=== PATIENT | female | born 1955 | race Caucasian/White ===

== ENCOUNTER 2016-08-09 16:01 | Emergency (ER) | payer OTHER ==
[~2016-08-09] VITALS: Ht 172.7 cm; Wt 88.7 kg
[~2016-08-09 16:01] MED LIST: Aspirin PO; CALCIUM + D3 E1 EACH PO; CELECOXIB200 MG PO; DAILY VITE1 EAC1 PO; DEXILANT60 MG PO; DIAZEPAM2 MG PO; DOCUSATE SODIU100 MG PO; ENDOCET 5-3251 EACH PO; Ecotrin PO; FISH OIL500 MG PO; FLEXERIL5 MG PO; Fish Oil PO; GERD MED PO; LEVAQUIN500 MG PO; LEVOTHROID,S0.025 MG PO; LOVENOX40 MG/0.4 SC; Levothroid,Synthroid PO; MOTRIN600 MG PO; MOTRIN800 MG PO; NORCO 5/3251 TABLET PO; PANTOPRAZOLE SO40 MG PO; PEPCID20 MG PO; PEPCID40 MG PO; PERCOCET 5/31 TABLET PO; PRILOSEC20 MG PO; PROTONIX40 MG PO; Pepcid PO; PriLOSEC PO; SKELAXIN800 MG PO; THERAGRAN1 TABLET PO; Theragran PO; Tirosint PO; ZINC30 MG PO
[2016-08-09 16:33] LABS: MCH 32.5 PG (29.0-34.0); MCHC 33.3 G/DL (30.0-36.0); MCV 97.7 FL (83-99); MEAN PLAT.VOLUME 9.6 uM^3 (9.5-12.4); PLATELET COUNT 197 K/uL (156-360); RBC DIS.WIDTH-CV 12.5 % (11.8-14.6); RBC DIS.WIDTH-SD 42.8 % (39-53); WHITE BLOOD COUNT 5.2 K/uL (4.1-10.2)
[2016-08-09 16:43] LABS: CHLORIDE 108 mEq/L (99-109); POTASSIUM 3.7 mEq/L (3.7-5.4); SODIUM 144 mEq/L (136-147)
[2016-08-09 16:44] LABS: GLUCOSE 122 mg/dL (70-99)
[2016-08-09 16:46] LABS: ANION GAP 7 MEQ/L (2-14)
[2016-08-09 16:48] LABS: GFR ESTIMATE (CALCULATED) > 59 mL/min/
[2016-08-09 16:49] LABS: UREA NITROGEN (BUN) 11 mg/dL (9-23)
[2016-08-09 16:54] LABS: TROP-I INTERPRETATION NEGATIVE; TROPONIN-I < 0.01 ng/mL (0.0-0.30)
[2016-08-09 18:12] VITALS: BP 128/74
== END 2016-08-09 18:14 | disposition home or self-care (01) ==
LOC: EME 16:01
DX: R07.89 Other chest pain (principal); M94.0 Chondrocostal junction syndrome [Tietze]
CPT/HCPCS: 71020; 80048; 84484; 85027; 93005; 99281; 99284

== ENCOUNTER 2017-02-11 10:26 | Emergency (ER) | payer OTHER ==
[~2017-02-11] VITALS: Ht 172.7 cm; Wt 91.3 kg
[2017-02-11 10:59] LABS: HEMATOCRIT 41.6 % (36.0-46.0); MCH 32.3 PG (29.0-34.0); MCHC 32.9 G/DL (30.0-36.0); MCV 98.1 FL (83-99); MEAN PLAT.VOLUME 9.3 uM^3 (9.5-12.4); PLATELET COUNT 199 K/uL (156-360); RBC DIS.WIDTH-CV 12.1 % (11.8-14.6); RBC DIS.WIDTH-SD 43.8 % (39-53); RED BLOOD COUNT 4.24 M/uL (3.80-5.20); WHITE BLOOD COUNT 4.1 K/uL (4.1-10.2)
[2017-02-11 11:12] LABS: CHLORIDE 107 mEq/L (99-109); POTASSIUM 4.5 mEq/L (3.7-5.4); SODIUM 145 mEq/L (136-147)
[2017-02-11 11:13] LABS: GLUCOSE 136 mg/dL (70-99)
[2017-02-11 11:15] LABS: ANION GAP 9 MEQ/L (2-14)
[2017-02-11 11:17] LABS: GFR ESTIMATE (CALCULATED) > 59 mL/min/
[2017-02-11 11:18] LABS: UREA NITROGEN (BUN) 14 mg/dL (9-23)
[2017-02-11 12:11] LABS: ADD MIUA? NO; BILIRUBIN NEGATIVE; BLOOD NEGATIVE; COLOR COLORLESS ((YELLOW)); GLUCOSE (STRIP) NEGATIVE; KETONES NEGATIVE; LEUKOCYTES NEGATIVE; NITRITE NEGATIVE; PROTEIN (STRIP) NEGATIVE; SPECIFIC GRAVITY 1.004 (1.000-1.030); UCUL ADDED? NO; UROBILINOGEN 0.2 MG/DL (0.2-1.0)
[2017-02-11 12:30] LABS: TROP-I INTERPRETATION NEGATIVE; TROPONIN-I < 0.01 ng/mL (0.0-0.30)
[2017-02-11 14:42] VITALS: BP 122/75
== END 2017-02-11 14:43 | disposition home or self-care (01) ==
LOC: EME 10:26
PROVIDERS: Emergency Medicine
DX: R53.1 Weakness (principal); R41.82 Altered mental status, unspecified; R47.81 Slurred speech
CPT/HCPCS: 70450; 71020; 80048; 81003; 84484; 85027; 93005; 99281; 99284; G8978 GP CI; G8979 GP CI; G8980 GP CI

== ENCOUNTER 2017-02-26 20:21 | Emergency (ER) | payer OTHER ==
[~2017-02-26] VITALS: Ht 172.7 cm; Wt 90.4 kg
[2017-02-26 21:23] LABS: HEMATOCRIT 43.3 % (36.0-46.0); MCH 32.2 PG (29.0-34.0); MCV 97.5 FL (83-99); MEAN PLAT.VOLUME 9.3 uM^3 (9.5-12.4); PLATELET COUNT 230 K/uL (156-360); RBC DIS.WIDTH-CV 11.9 % (11.8-14.6); RBC DIS.WIDTH-SD 42.8 % (39-53); RED BLOOD COUNT 4.44 M/uL (3.80-5.20); WHITE BLOOD COUNT 5.6 K/uL (4.1-10.2)
[2017-02-26 21:39] LABS: CHLORIDE 105 mEq/L (99-109); POTASSIUM 3.8 mEq/L (3.7-5.4); SODIUM 142 mEq/L (136-147)
[2017-02-26 21:41] LABS: GLUCOSE 71 mg/dL (70-99)
[2017-02-26 21:43] LABS: ANION GAP 11 MEQ/L (2-14)
[2017-02-26 21:45] LABS: GFR ESTIMATE (CALCULATED) > 59 mL/min/
[2017-02-26 21:46] LABS: UREA NITROGEN (BUN) 16 mg/dL (9-23)
[2017-02-26 22:50] LABS: TROP-I INTERPRETATION NEGATIVE; TROPONIN-I < 0.01 ng/mL (0.0-0.30)
[2017-02-26 23:27] LABS: ADD MIUA? YES; BILIRUBIN NEGATIVE; BLOOD NEGATIVE; COLOR YELLOW ((YELLOW)); GLUCOSE (STRIP) NEGATIVE; KETONES NEGATIVE; LEUKOCYTES LARGE; NITRITE NEGATIVE; PROTEIN (STRIP) NEGATIVE; SPECIFIC GRAVITY 1.018 (1.000-1.030); UROBILINOGEN 0.2 MG/DL (0.2-1.0)
[2017-02-26 23:30] LABS: BACTERIA RARE /HPF; EPITHELIAL CELLS RARE /HPF; MUCUS TRACE /LPF; RED BLOOD CELLS 0-5 /HPF (0-5); UCUL ADDED? NO; WHITE BLOOD CELLS 20-30 /HPF (0-5)
[2017-02-26] MEDS ORDERED: CIPRO500 MG PO (23:57)
[2017-02-27 00:18] VITALS: BP 150/86
== END 2017-02-27 00:20 | disposition home or self-care (01) ==
LOC: EME 20:21
DX: N39.0 Urinary tract infection, site not specified (principal); W19.XXXA Unspecified fall, initial encounter
CPT/HCPCS: 70450; 80048; 81003; 83880; 84484; 85027; 99281; 99284

== ENCOUNTER 2017-03-26 11:26 | Emergency (ER) | payer OTHER ==
[~2017-03-26] VITALS: Ht 172.7 cm; Wt 100.0 kg
[~2017-03-26 11:26] MED LIST changes: +CIPRO500 MG PO
[2017-03-26 14:02] LABS: EOSINOPHIL (%) 1.2 % (0-5); EOSINOPHIL COUNT 0.1 K/uL (0-0.3); IMMATURE GRANULOCYTE (%) 0.4 % (0.0-0.7); INSTRUMENT ABS NEUTROPHIL CT 2.6 K/uL; LYMPHOCYTE COUNT 1.7 K/uL (1.0-2.8); MCH 31.7 PG (29.0-34.0); MCV 95.9 FL (83-99); MEAN PLAT.VOLUME 9.2 uM^3 (9.5-12.4); MONOCYTE (%) 8.1 % (3-12); MONOCYTE COUNT 0.4 K/uL (0-0.8); NEUTROPHIL (%) 54.6 % (45-76); NEUTROPHIL COUNT 2.6 K/uL (1.8-6.4); PLATELET COUNT 195 K/uL (156-360); RBC DIS.WIDTH-CV 11.7 % (11.8-14.6); RBC DIS.WIDTH-SD 41.1 % (39-53); RED BLOOD COUNT 4.17 M/uL (3.80-5.20); WHITE BLOOD COUNT 4.8 K/uL (4.1-10.2)
[2017-03-26 14:09] LABS: CHLORIDE 106 mEq/L (99-109); POTASSIUM 4.9 mEq/L (3.7-5.4); SODIUM 142 mEq/L (136-147)
[2017-03-26 14:11] LABS: GLUCOSE 88 mg/dL (70-99)
[2017-03-26 14:13] LABS: ANION GAP 7 MEQ/L (2-14)
[2017-03-26 14:15] LABS: GFR ESTIMATE (CALCULATED) > 59 mL/min/
[2017-03-26 14:16] LABS: UREA NITROGEN (BUN) 13 mg/dL (9-23)
[2017-03-26 15:44] LABS: ADD MIUA? YES; BILIRUBIN NEGATIVE; BLOOD NEGATIVE; COLOR STRAW ((YELLOW)); GLUCOSE (STRIP) NEGATIVE; KETONES NEGATIVE; LEUKOCYTES TRACE; NITRITE NEGATIVE; PROTEIN (STRIP) NEGATIVE; SPECIFIC GRAVITY 1.008 (1.000-1.030); UROBILINOGEN 0.2 MG/DL (0.2-1.0)
[2017-03-26 15:49] LABS: BACTERIA NONE SEEN /HPF; EPITHELIAL CELLS RARE /HPF; MUCUS TRACE /LPF; RED BLOOD CELLS 0-5 /HPF (0-5); UCUL ADDED? NO; WHITE BLOOD CELLS 0-5 /HPF (0-5)
[2017-03-26 17:36] VITALS: BP 117/75
== END 2017-03-26 17:36 | disposition home or self-care (01) ==
LOC: EME 11:26
PROVIDERS: Personal Emergency Response Attendant
DX: G62.9 Polyneuropathy, unspecified (principal); Z88.8 Allergy status to other drugs, medicaments and biological substances
CPT/HCPCS: 70450; 71020; 80048; 81003; 85025; 93005; 99281; 99284